=== PATIENT | male | born 1985 | race Caucasian/White ===

== ENCOUNTER 2016-12-23 09:06 | Emergency (ER) | payer SELFPAY ==
--- NOTE | ~2016-12-23 | CT57 ---
[facility]. [facility] A Service [facility] RADIOLOGY TEXT RESULTS PATIENT: KRYSTLE GOINS LOCATION: SED : 89 UNIT #: [id number] AGE: [address]: Hussain Nieto MD SEX: M ORDER DR: [id number] [address] [address] [id number] E MR#: [id number] Acc #: [id number] NAME: KRYSTLE GOINS : 1985 SEX: M STUDY DATE/TIME: 12/23/2016 09:49 UNIT: SED ROOM: STUDY DESCRIPTION: CT Chest Wo Cont Attending Physician: Hussain Nieto M.D. Ordering Physician: Hussain Nieto M.D. Primary Care Physician: No Primary Care Physician MEDICAL IMAGING REPORT This report is preliminary unless electronic signature is present. EXAM CT chest without contrast, 12/23/2016, 0949 hours. CLINICAL HISTORY 31-year-old man who states that he rolled over in bed on 12/20/2016 and felt a pop in his ribs. Tender to palpation and pain with respiration in the left anterior upper chest. COMPARISON Chest x-ray 07/25/[address] abdomen 07/25/2016. TECHNIQUE Helical noncontrasted images were obtained from the thoracic inlet through the adrenal glands. Sagittal and coronal reconstructions were performed. Total exam DLP 734 mGy-cm. This CT exam was performed with one or more of the following radiation dose reduction techniques: automatic exposure control, adjustment of mA and/or kV according to patient size, and iterative reconstruction. FINDINGS Images through the thoracic inlet demonstrate no thyroid lesion or adenopathy. Images through the chest demonstrate a small amount of thymic tissue in the anterior mediastinum. There is no pathologic mediastinal, hilar or axillary adenopathy. The aorta is normal. The lungs are clear. There is no pleural effusion or pneumothorax. Bone window images demonstrate a plate and screw fixator through a well healed left clavicle fracture. No rib fracture is seen. [facility] A Service [facility] RADIOLOGY TEXT RESULTS PATIENT: KRYSTLE GOINS [facility] [id number] : [birth year] UNIT #: [id number] AGE: [address]: Hussain Nieto MD SEX: M ORDER DR: Limited views through the upper abdomen are negative. IMPRESSION 1. Negative noncontrasted chest CT. There is no rib fracture seen. The lungs are clear. There is no pleural effusion or pneumothorax. 2. Old healed left clavicle fracture with plate and screw fixator. Dictated by... Li Diaz M.D. THIS IS AN ELECTRONICALLY VERIFIED REPORT Li Diaz M.D. at 12/23/2016 6:56 PM DAIVD/clint TD: 12/23/2016 15:19 JOB #: [id number] MEDICAL IMAGING REPORT Page 1 of 1
[~2016-12-23 09:06] MED LIST: BACTRIM DS TABL1 TA1 PO; CIPRO PO; CIPRO250 MG PO; FLOMAX0.4 M1 PO; LORTAB 10-5001 EACH PO; LORTAB 5/500 TA1 TA1 PO; NAPROSYN500 MG PO; PHENERGAN25 MG PO; TYLOX 5-500 MG1 EACH PO; VICODIN 5/1 TAB 5/50 PO; VOLTAREN75 MG PO
[2016-12-23] MEDS ORDERED: PANTOPRAZOLE SO40 MG PO (09:16)
[2016-12-23] MEDS ORDERED: METHADOSE40 M1 PO (09:17)
== END 2016-12-23 11:02 | disposition home or self-care (01) ==
LOC: SED 09:06
DX: R07.89 Other chest pain (principal); F17.210 Nicotine dependence, cigarettes, uncomplicated; Z79.899 Other long term (current) drug therapy
CPT/HCPCS: 71250; 99285